=== PATIENT | male | born 1975 | race Caucasian/White ===

== ENCOUNTER → 2020-11-18 | Outpatient (CLI) | payer OTHER ==
--- NOTE | 2020-11-18 11:41 | REP ---
INDICATION: MRI CLEARENCE. History of metallic foreign body in the right eyebrow region. COMPARISON: None. TECHNIQUE: Frontal and lateral views of the facial bones are obtained. FINDINGS: PA and lateral views of the facial bones confirm the presence of an 8 mm metallic foreign body in the soft tissues over lying the right frontal bone in the supraorbital region. No intraorbital metallic foreign body is seen. No bony destructive lesion is seen. Orbital margins are intact. FINDINGS: See above. IMPRESSION: There is a metallic foreign body in the supraorbital soft tissues in the right frontal region. Clearance given for MRI of the knee. <Electronically signed by Kiel Adan > 11/18/20 [id number]
--- NOTE | 2020-11-18 12:28 | REP ---
INDICATION: LT KNEE OA W/ PAIN. COMPARISON: 270 a TECHNIQUE: Sagittal spin-echo proton density, T2 STIR and T2 FLASH. Coronal spin-echo proton density and fat suppressed proton density. Axial fat suppressed proton density. FINDINGS: Exams are technically different. The anterior and posterior horns of the lateral meniscus are within normal limits. There is grade 3 signal change seen within the posterior horn of the medial meniscus which is truncated. The anterior horn is within normal limits. The anterior and posterior cruciate ligaments are intact. The quadriceps and patellar tendons are intact. T2 hyper signal is seen superficial and deep to the medial collateral ligament which is intact. The lateral collateral ligament is intact. The medial and lateral patellar retinacula are intact. There is a joint effusion. There is thinning and irregularity of all articular cartilages which is [id number]. 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 IMPRESSION: 1. Complex tear of the posterior horn of the medial meniscus. A bucket-handle component cannot be ruled out. 2. Medial collateral ligamentous sprain. 3. Tricompartmental chondromalacia. 4. Joint effusion. 5. Other findings as described above. <Electronically signed by Lorne Ceja > 11/18/20 [id number]
== END ==
LOC: M RAD 10:48
PROVIDERS: ATTEND Physician Assistant
DX: S83.232A Complex tear of medial meniscus, current injury, left knee, initial encounter (principal); S83.412A Sprain of medial collateral ligament of left knee, initial encounter; M94.262 Chondromalacia, left knee; M25.462 Effusion, left knee; S00.85XA Superficial foreign body of other part of head, initial encounter; M25.562 Pain in left knee; X58.XXXA Exposure to other specified factors, initial encounter; Y92.9 Unspecified place or not applicable; Y99.9 Unspecified external cause status

== ENCOUNTER 2023-05-16 10:21 | Emergency (ER) | payer BC, OTHER ==
[~2023-05-16] VITALS: Ht 180.3 cm; Wt 130.4 kg
[2023-05-16] MEDS ORDERED: ONDA8TAB8 (10:34)
[2023-05-16 13:27] LABS: INR 1.03; PROTHROMBIN TIME 13.2 SECONDS (12.5-14.5)
[2023-05-16 13:32] LABS: LIPASE 37 U/L (12-53)
[2023-05-16 13:33] LABS: AMYLASE 45 U/L (30-118)
[2023-05-16 13:34] LABS: ALBUMIN 3.6 G/DL (3.2-5.2); ALKALINE PHOSPHATASE 249 U/L (46-116); ALT/SGPT 585 U/L (7.0-40); AST/SGOT 238 U/L (<34); BILIRUBIN,DIRECT 10.2 MG/DL (<0.4); BILIRUBIN,TOTAL 13.1 MG/DL (0.3-1.2); BLOOD UREA NITROGEN 16 MG/DL (9-23); CALCIUM LEVEL 9.2 MG/DL (8.5-10.1); CARBON DIOXIDE LEVEL 28 MMOL/L (20-31); CHLORIDE LEVEL 102 MMOL/L (98-107); CREATININE FOR GFR 1.12 MG/DL (0.70-1.30); GLOMERULAR FILTRATION RATE > 60.0 (>56); GLUCOSE, FASTING 114 MG/DL (60-100); POTASSIUM SERUM 4.1 MMOL/L (3.5-5.1); SODIUM LEVEL 137 MMOL/L (136-145); TOTAL PROTEIN 7.1 G/DL (5.7-8.2)
[2023-05-16 13:40] LABS: HEMATOCRIT 45.8 % (42.0-52.0); HEMOGLOBIN 15.6 g/dl (13.5-17.5); MEAN CORPUSCULAR VOLUME 89.6 fl (80.0-96.0); RED BLOOD COUNT 5.11 10^6/uL (4.30-6.10); WHITE BLOOD COUNT 8.3 10^3/uL (4.0-10.0)
[2023-05-16 13:41] LABS: BASO # 0.1 10^3/uL (0.0-0.2); EOS # 0.2 10^3/uL (0.0-0.5); EOS % 1.8 % (0.0-3.0); LYMPH # 0.8 10^3/uL (1.5-5.0); LYMPH % 9.4 % (24.0-44.0); MEAN CORPUSCULAR HEMOGLOBIN 30.5 pg (27.0-33.0); MEAN CORPUSCULAR HGB CONC 34.1 g/dl (32.0-36.5); MONO % 11.4 % (2.0-8.0); NEUTROPHILS # 6.3 10^3/uL (1.5-8.5); PLATELET COUNT, AUTOMATED 269 10^3/uL (150-450)
[2023-05-16 13:56] LABS: APPEARANCE, URINE CLEAR (CLEAR); BACTERIA, URINE AUTO NEGATIVE (NEGATIVE); BILIRUBIN, URINE AUTO 2+ (NEGATIVE); BLOOD, URINE BLOOD NEGATIVE (NEGATIVE); COLOR, URINE AMBER (YELLOW); GLUCOSE, URINE (UA) AUTO NEGATIVE (NEGATIVE); KETONE, URINE AUTO 1+ mg/dL (NEGATIVE); LEUKOCYTE ESTERASE, URINE AUTO NEGATIVE (NEGATIVE); MUCUS, URINE SMALL (NEGATIVE); NITRITE, URINE AUTO NEGATIVE (NEGATIVE); PROTEIN, URINE AUTO 1+ mg/dL (NEGATIVE); RBC, URINE AUTO 0 /HPF (0-3); SPECIFIC GRAVITY URINE AUTO 1.021 (1.002-1.035); SQUAMOUS EPITHELIAL CELL UR AU 0 /HPF (0-6); WBC, URINE AUTO 3 /HPF (0-3)
[2023-05-16 14:09] LABS: HEPATITIS B CORE ANTIBODY IGM NEGATIVE (NEGATIVE); HEPATITIS C VIRUS ABY INDEX 0.05 INDEX (<0.8)
[2023-05-16 14:49] LABS: RSV AMPLIFICATION NEGATIVE (NEGATIVE)
[2023-05-16 16:28] VITALS: BP 122/76; TEMP 97.5; O2SAT 98
== END 2023-05-16 16:33 | disposition short-term general hospital (02) ==
LOC: M ED 10:21
DX: K83.1 Obstruction of bile duct (principal); Z79.899 Other long term (current) drug therapy

== ENCOUNTER → 2025-05-14 | Outpatient (CLI) | payer BC ==
[~2025-05-14] MED LIST: ELIQ5TAB; ISOVUE-370 76% 100 ML VIAL As Ordered ONE; ONDA-284
== END ==
LOC: M RAD 08:00
PROVIDERS: ATTEND Student in an Organized Health Care Education/Training Program
DX: R63.4 Abnormal weight loss (principal); J84.10 Pulmonary fibrosis, unspecified; K76.0 Fatty (change of) liver, not elsewhere classified; Z90.49 Acquired absence of other specified parts of digestive tract; K42.9 Umbilical hernia without obstruction or gangrene; I70.0 Atherosclerosis of aorta
CPT/HCPCS: 74177; Q9967